=== PATIENT | female | born 1955 | race American Indian/Alaskan Native ===

== ENCOUNTER 2023-10-22 03:45 | Inpatient (IN) | payer OTHER, MEDICARE ==
[~2023-10-22] VITALS: Ht 167.6 cm; Wt 81.6 kg
[2023-10-22] MEDS ORDERED: ACETAMINOPHEN 325MG TABLET PO STA (03:56)
[2023-10-22] MEDS ORDERED: SODIUM CHLORIDE 0.9% 1000ML BAG (SEPSIS BOLUS) IV ONE ×2 (04:00→07:00)
[2023-10-22] MEDS ORDERED: DEXTROSE 50% WATER 50ML SYRINGE IV ONE (04:00)
[2023-10-22] MEDS ORDERED: DEXTROSE 50% WATER 50ML SYRINGE IV STA (04:45)
[2023-10-22 04:53] LABS: HEMATOCRIT. 32.7 % (36.0-48.0); HEMOGLOBIN. 10.1 g/dL (12.0-16.0); MEAN CORPUSCULAR HEMOGLOBIN 30.2 pg (28.0-32.0); MEAN CORPUSCULAR VOLUME 97.2 fL (81.0-99.0); MEAN PLATELET VOLUME 7.3 fl (7.4-10.4); PLATELET 246 x1000/uL (130-400); RED BLOOD CELL COUNT 3.36 mill/uL (4.2-5.4); RED CELL DISTRIBUTION WIDTH 15.9 % (11.6-14.6); WHITE BLOOD COUNT 20.3 x1000/uL (4.5-11.0)
[2023-10-22 04:54] LABS: DIFFERENTIAL COMMENT 1
[2023-10-22 05:36] LABS: ALANINE AMINOTRANSFERASE 16 IU/L (10-49); ALBUMIN 4.2 g/dL (3.2-4.8); ASPARTATE AMINOTRANSFERASE 39 IU/L (<34); BILIRUBIN TOTAL 0.8 mg/dL (0.1-1.0); CALCIUM 9.2 mg/dL (8.7-10.4); CARBON DIOXIDE 17 mEq/L (21-32); CHLORIDE 104 mEq/L (98-107); CREATININE 3.1 mg/dL (0.6-1.0); POTASSIUM 3.7 mEq/L (3.5-5.1); PROTEIN TOTAL 7.9 g/dL (6.0-8.3); SODIUM 135 mEq/L (136-145); UREA NITROGEN BLOOD 44 mg/dL (9-23)
[2023-10-22 05:40] LABS: PLATELET ESTIMATE NORMAL
[2023-10-22 06:02] LABS: ETHANOL BLOOD < 10 mg/dL (<10); GLUCOSE 34 mg/dL (70-105); TROPONIN I HIGH SENSITIVITY 103 ng/L (3.0-34)
[2023-10-22] MEDS ORDERED: CEFTRIAXONE 1GM PREMIX 50 ML IV ONE (07:00)
[2023-10-22 07:42] LABS: INR 1.1
[2023-10-22 08:18] LABS: TROPONIN I HIGH SENSITIVITY 94 ng/L (3.0-34)
[2023-10-22 09:52] LABS: TROPONIN I HIGH SENSITIVITY 97 ng/L (3.0-34)
[2023-10-22] MEDS ORDERED: IPRATROPIUM/ALBUTEROL 0.5-3(2.5)MG/3ML NEB HHN PRN (10:15)
[2023-10-22] MEDS ORDERED: MAGNESIUM/ALUMINUM HYDROXIDE/SIMETHICONE 30ML UDC PO PRN (10:15)
[2023-10-22] MEDS ORDERED: DOCUSATE SODIUM 100MG CAPSULE PO PRN (10:15)
[2023-10-22] MEDS ORDERED: CLONIDINE 0.1MG TABLET PO PRN (10:15)
[2023-10-22] MEDS ORDERED: DEXTROSE 50% WATER 50ML SYRINGE IV PRN ×2 (10:15→11:15)
[2023-10-22] MEDS ORDERED: ONDANSETRON HCL 4MG/2ML INJ IV PRN (10:15)
[2023-10-22] MEDS ORDERED: GUAIFENESIN 200MG/10ML SUGAR FREE UDC PO PRN (10:15)
[2023-10-22] MEDS ORDERED: ACETAMINOPHEN 325MG TABLET PO PRN (10:15)
[2023-10-22 10:40] LABS: CREATINE KINASE MB FRACTION 3.6 ng/mL (0.5-3.6)
[2023-10-22] MEDS ORDERED: P50 PO (10:57)
[2023-10-22] MEDS ORDERED: FURO20TA4 PO (10:57)
[2023-10-22] MEDS ORDERED: METO25TA6 PO (10:57)
[2023-10-22] MEDS ORDERED: CALC0.253 PO (10:57)
[2023-10-22] MEDS ORDERED: APIX5TAB PO (10:57)
[2023-10-22] MEDS ORDERED: CYCL5TAB PO (10:57)
[2023-10-22] MEDS ORDERED: SODI650T PO (10:57)
[2023-10-22] MEDS ORDERED: AMLO5TAB88 PO (10:57)
[2023-10-22] MEDS ORDERED: CRES10 (10:57)
[2023-10-22] MEDS ORDERED: SEMA0.258 SUBCUT (10:57)
[2023-10-22] MEDS ORDERED: [UNRECOGNIZED DRUG - CODE] PO (10:57)
[2023-10-22] MEDS ORDERED: GLIP5TAB22 PO (10:57)
[2023-10-22] MEDS ORDERED: NON FORMULARY PATIENT HOME MED XX SCH (11:00)
[2023-10-22] MEDS ORDERED: VANCOMYCIN 1.5GM/250ML 250 ML IV NR (11:00)
[2023-10-22] MEDS ORDERED: LEVOFLOXACIN 750MG PREMIX 150 ML IV NR (11:00)
[2023-10-22] MEDS: DEXT 5%/0.45% NACL 1000ML 1,000 ML IV SCH (13:25)
[2023-10-22] MEDS: BLOOD SUGAR DIAGNOSTIC STRIP TEST SCH ×3 (13:25→21:00)
[2023-10-22] MEDS: APIXABAN 5 MG TABLET PO SCH ×2 (14:46→19:05)
[2023-10-22 16:31] LABS: CLARITY URINE TURBID (CLEAR); COLOR URINE YELLOW (YELLOW); GLUCOSE URINE TRACE (NEGATIVE); KETONES URINE NEGATIVE (NEGATIVE); LEUKOCYTE ESTERASE URINE TRACE (NEGATIVE); NITRITE URINE NEGATIVE (NEGATIVE); OCCULT BLOOD URINE 2+ (NEGATIVE); PH URINE 6.5 (4.5-8.0); PROTEIN URINE 2+ (NEGATIVE); SPECIFIC GRAVITY URINE 1.013 (1.005-1.030)
[2023-10-22 16:53] LABS: BACTERIA URINE 4+; SQUAMOUS EPITHELIAL CELL URINE 1+ /lpf (RARE/1+)
[2023-10-22 16:54] LABS: *AMPHETAMINES SCREEN URINE NEGATIVE (NEGATIVE); *BARBITURATES SCREEN URINE NEGATIVE (NEGATIVE); *BENZODIAZEPINES SCREEN URINE NEGATIVE (NEGATIVE); *COCAINE SCREEN URINE NEGATIVE (NEGATIVE); CANNABINOID URINE SCREEN NEGATIVE (NEGATIVE); ECSTASY MDMA SCREEN URINE NEGATIVE (NEGATIVE); METHADONE URINE SCREEN Neg (NEGATIVE); OPIATES URINE SCREEN NEGATIVE (NEGATIVE); PHENCYCLIDINE URINE SCREEN NEGATIVE (NEGATIVE); WBC URINE 0-2 /hpf (0-2)
[2023-10-22 17:15] LABS: TROPONIN I HIGH SENSITIVITY 134 ng/L (3.0-34)
[2023-10-22 18:36] VITALS: BP 144/54; PULSE 97; RESP 15; TEMP 99.8
[2023-10-22] MEDS: METOPROLOL TARTRATE 25MG TABLET PO SCH (19:05)
[2023-10-22] MEDS: AMLODIPINE 5MG TABLET PO SCH (19:05)
[2023-10-22 20:00] VITALS: BP 110/92; PULSE 87; RESP 19; TEMP 99.6
[2023-10-22] MEDS ORDERED: FAMOTIDINE 20MG TABLET PO SCH (21:00)
[2023-10-22] MEDS: ATORVASTATIN CALCIUM 20MG TABLET PO SCH (22:03)
[2023-10-23] VITALS (7 sets, daily range): BP systolic 117–142; BP diastolic 48–57; PULSE 69–92; RESP 16–19; TEMP 97.2–102.9
[2023-10-23] MEDS ORDERED: ASPI-1497 PO (01:10)
[2023-10-23] MEDS ORDERED: [UNRECOGNIZED DRUG - SUPPLY] (01:10)
[2023-10-23] MEDS: ACETAMINOPHEN 325MG TABLET PO PRN ×3 (01:31→20:55)
[2023-10-23 02:25] LABS: TROPONIN I HIGH SENSITIVITY 188 ng/L (3.0-34)
[2023-10-23] MEDS: BLOOD SUGAR DIAGNOSTIC STRIP TEST SCH ×3 (07:40→20:53)
[2023-10-23 07:50] LABS: BASOPHILS % 0.5 % (0.0-2.0); EOSINOPHILS % 0.2 % (0.0-5.0); HEMATOCRIT. 27.3 % (36.0-48.0); HEMOGLOBIN. 8.9 g/dL (12.0-16.0); LYMPHOCYTES % 10.3 % (20.0-50.0); MEAN CORPUSCULAR HEMOGLOBIN 30.4 pg (28.0-32.0); MEAN CORPUSCULAR HGB CONC 32.6 g/dL (31.0-37.0); MEAN CORPUSCULAR VOLUME 93.2 fL (81.0-99.0); MEAN PLATELET VOLUME 8.6 fl (7.4-10.4); MONOCYTES % 10.6 % (2.0-8.0); NEUTROPHILS % 78.4 % (40.0-76.0); PLATELET 200 x1000/uL (130-400); RED BLOOD CELL COUNT 2.93 mill/uL (4.2-5.4); RED CELL DISTRIBUTION WIDTH 15.7 % (11.6-14.6); WHITE BLOOD COUNT 13.3 x1000/uL (4.5-11.0)
[2023-10-23] MEDS: APIXABAN 5 MG TABLET PO SCH ×2 (08:58→16:15)
[2023-10-23] MEDS: METOPROLOL TARTRATE 25MG TABLET PO SCH ×2 (08:59→16:15)
[2023-10-23] MEDS: AMLODIPINE 5MG TABLET PO SCH ×2 (08:59→16:16)
[2023-10-23 09:03] LABS: ALANINE AMINOTRANSFERASE 26 IU/L (10-49); ALBUMIN 3.8 g/dL (3.2-4.8); ASPARTATE AMINOTRANSFERASE 55 IU/L (<34); BILIRUBIN TOTAL 0.8 mg/dL (0.1-1.0); CALCIUM 8.9 mg/dL (8.7-10.4); CARBON DIOXIDE 15 mEq/L (21-32); CHLORIDE 107 mEq/L (98-107); CHOLESTEROL 92 mg/dL (<200); GLUCOSE 118 mg/dL (70-105); HDL CHOLESTEROL 32 mg/dL (>65); LDL CHOLESTEROL 55 mg/dL (5-100); POTASSIUM 3.9 mEq/L (3.5-5.1); PROTEIN TOTAL 6.4 g/dL (6.0-8.3); SODIUM 135 mEq/L (136-145); T4 FREE 0.87 ng/dL (0.89-1.76); THYROID STIMULATING HORMONE 4.59 uIU/mL (0.55-4.78); TRIGLYCERIDE 117 mg/dL (0-150); UREA NITROGEN BLOOD 38 mg/dL (9-23)
[2023-10-23] MEDS ORDERED: VANCOMYCIN 1G PREMIX 200 ML IV NR (13:00)
[2023-10-23 19:45] LABS: TROPONIN I HIGH SENSITIVITY 136 ng/L (3.0-34)
[2023-10-23] MEDS: ATORVASTATIN CALCIUM 20MG TABLET PO SCH (20:54)
[2023-10-24] VITALS (7 sets, daily range): BP systolic 113–162; BP diastolic 53–72; PULSE 68–91; RESP 16–20; TEMP 96.9–97.9; O2SAT 99
[2023-10-24] MEDS: DEXT 5%/0.45% NACL 1000ML 1,000 ML IV SCH (02:20)
[2023-10-24] MEDS: BLOOD SUGAR DIAGNOSTIC STRIP TEST SCH ×3 (07:40→17:40)
[2023-10-24] MEDS: METOPROLOL TARTRATE 25MG TABLET PO SCH ×2 (08:48→16:58)
[2023-10-24] MEDS: APIXABAN 5 MG TABLET PO SCH ×2 (08:48→16:58)
[2023-10-24] MEDS: AMLODIPINE 5MG TABLET PO SCH ×2 (08:48→16:58)
[2023-10-24] MEDS: ACETAMINOPHEN 325MG TABLET PO PRN ×2 (08:49→16:58)
[2023-10-24] MEDS ORDERED: LEVOFLOXACIN 500MG PREMIX 100 ML IV SCH (11:00)
[2023-10-24] MEDS ORDERED: DEXTROSE 50% WATER 50ML SYRINGE IV PRN (13:00)
[2023-10-24] MEDS ORDERED: INSULIN LISPRO 100 UNITS/ML SUBCUT SCH (13:15)
[2023-10-24] MEDS: INSULIN LISPRO 100 UNITS/ML SUBCUT SCH ×2 (13:20→17:46)
[2023-10-24 16:05] LABS: HEMOGLOBIN 8.8 g/dL (12.0-16.0); MEAN CORPUSCULAR HEMOGLOBIN 30.2 pg (28.0-32.0); MEAN CORPUSCULAR HGB CONC 31.3 g/dL (31.0-37.0); MEAN CORPUSCULAR VOLUME 96.3 fL (81.0-99.0); PLATELET 259 x1000/uL (130-400); RED BLOOD CELL COUNT 2.91 mill/uL (4.2-5.4)
[2023-10-24 16:44] LABS: CALCIUM 9.4 mg/dL (8.7-10.4); CARBON DIOXIDE 19 mEq/L (21-32); CHLORIDE 101 mEq/L (98-107); CREATININE 3.2 mg/dL (0.6-1.0); GLUCOSE 277 mg/dL (70-105); PHOSPHORUS 3.3 mg/dL (2.5-4.9); POTASSIUM 3.4 mEq/L (3.5-5.1); SODIUM 133 mEq/L (136-145); UREA NITROGEN BLOOD 49 mg/dL (9-23)
[2023-10-24] MEDS ORDERED: BLOOD SUGAR DIAGNOSTIC STRIP TEST SCH (17:40)
[2023-10-24] MEDS ORDERED: POTASSIUM CHLORIDE 20MEQ TABLET SR PO NR (18:00)
== END 2023-10-24 18:55 | disposition short-term general hospital (02) | DRG 871 ==
LOC: ER 03:45 → 5WST 06:47 → EDBEDREQ 06:49 → EDBEDREQSVC 06:49 → 7WST 18:19
PROVIDERS: ADMIT Internal Medicine; ATTEND Internal Medicine
DX: A41.9 Sepsis, unspecified organism (principal); G92.8 Other toxic encephalopathy; I21.A1 Myocardial infarction type 2; N17.9 Acute kidney failure, unspecified; N18.4 Chronic kidney disease, stage 4 (severe); E11.22 Type 2 diabetes mellitus with diabetic chronic kidney disease; E11.649 Type 2 diabetes mellitus with hypoglycemia without coma; E78.5 Hyperlipidemia, unspecified; I12.9 Hypertensive chronic kidney disease with stage 1 through stage 4 chronic kidney disease, or unspecified chronic kidney disease; Z79.01 Long term (current) use of anticoagulants; Z79.84 Long term (current) use of oral hypoglycemic drugs; Z86.718 Personal history of other venous thrombosis and embolism; Z88.1 Allergy status to other antibiotic agents; Z79.899 Other long term (current) drug therapy; Z79.4 Long term (current) use of insulin; W18.30XA Fall on same level, unspecified, initial encounter; Y93.89 Activity, other specified; Y92.89 Other specified places as the place of occurrence of the external cause; Y99.8 Other external cause status
CPT/HCPCS: 36415; 71045; 73030; 76770; 80048; 80053; 80061; 80202; 80305; 80320; 81003; 82550; 82553; 82962; 83036; 83605; 83735; 84100; 84145; 84439; 84443; 84481; 84484; 85025; 85027; 93005; 93970; 97162; 97166; 99291; C1893; J1815; J1956; J2405; J3370; J7030; G0480